=== PATIENT | male | born 1985 | race Caucasian/White ===

== ENCOUNTER 2017-02-09 15:51 | Emergency (ER) | payer BC ==
[~2017-02-09] VITALS: Ht 170.2 cm; Wt 81.5 kg
[2017-02-09 16:01] VITALS: TEMP 36.6; Ht 170.2 cm; Wt 81.5 kg
[2017-02-09] MEDS ORDERED: GLUCTAB18 PO (16:58)
[2017-02-09] MEDS ORDERED: CLR10 PO (16:58)
[2017-02-09] MEDS ORDERED: DOXY1TAB6 PO (16:58)
[2017-02-09 17:00] LABS: URINE APPEARANCE CLEAR (CLEAR); URINE BILIRUBIN NEG (NEG); URINE COLOR YELLOW; URINE NITRITE NEG (NEG); URINE PH 5.5 (4.5-7.5); URINE SPECIFIC GRAVITY 1.015 (1.000-1.030); UROBILINOGEN NEG (NEG); ZZUR CULT IF INDIC CLEAN CATCH NO
[2017-02-09 17:04] LABS: MANUAL MICROSCOPIC REQUIRED? NO; REVIEW REQ? NO
--- NOTE | 2017-02-09 18:18 | DIAGNOSTIC IMAGING REPORT ---
ULTRASOUND TESTES AND SCROTUM CLINICAL HISTORY: Right testicular pain. Hematuria. COMPARISON STUDY: No priors. TECHNIQUE: Real-time, grayscale, and color Doppler sonography of the testes and scrotum is performed. Images are reviewed in the transverse and longitudinal planes. FINDINGS: The testes are normal in size and homogeneous in echotexture. The right testis measures 4.9 x 1.9 x 3.2 cm and the left testis measures 5.0 x 2.3 x 2.7 cm. No intratesticular mass is seen. Testicular blood flow is normal and symmetric. Normal Doppler waveforms are identified in both testes. The epididymal heads are normal in appearance. The right epididymal head measures 1.6 cm in length and the left epididymal head measures 0.9 cm in length. The right epididymis appears hyperemic. A 4 mm epididymal head cyst is noted on the left. There is a small right-sided hydrocele. A left-sided varicocele measures up to 4 mm. IMPRESSION: 1. Unremarkable sonographic appearance of the testes. 2. The right epididymis appears mildly enlarged and heterogeneous, and there is right epididymal hyperemia noted on color imaging. The appearance is typical for epididymitis. Clinical correlation will be required. 3. There is a small right-sided hydrocele. 4. A small left-sided varicocele is noted. Electronically signed by: Lui Wood M.D. 02/09/2017 6:17 PM Dictated Date/Time: 02/09/2017 6:14 PM
[2017-02-09] MEDS ORDERED: TRAM-10 PO (18:45)
[2017-02-09] MEDS ORDERED: TRAMADOL HCL 50 MG HOME PACK PO ONE (18:45)
[2017-02-09] MEDS ORDERED: LEVOFLOXACIN 250 MG TAB PO ONE (18:45)
[2017-02-09] MEDS ORDERED: LEVO-366 PO (18:45)
[2017-02-09 18:46] VITALS: BP 130/78; PULSE 76; O2SAT 97
--- NOTE | 2017-02-09 23:14 | EMERGENCY ROOM VISIT NOTE ---
History First contact with patient: 16:11 Chief Complaint: TESTICULAR PAIN Stated Complaint: SWELLING IN GROIN,BLOOD IN URINE Nursing Triage Summary: Pt presents with c/o right testicular pain and hematuria that began a couple weeks ago, worse after cat jumped on him Fri. Seen at [facility] on and being tx for a UTI with doug. "Noticeable lump on/beside right testicle. Noticeable amount of blood in my urine since last night." Denies flank pain. Fever on Fri. Denies discharge from penis. Denies hx of kidney stones. History of Present Illness The patient is a 31 year old male who presents to the Emergency Room with complaints of right testicular pain, swelling and hematuria. The patient reports that he first noticed right testicular pain 2 weeks ago. Earlier this past week, he then started to notice worsening discomfort on Friday. On Friday , he reports that his cat jumped off of the back of his chair and into his lap. He did have some mild discomfort that went away. The patient then reported that on the following day he had burning with urination and difficulty initiating flow. He went to the [facility] urgent care center on Friday, and was initially treated for a possible UTI or epididymitis. He was administered Rocephin IM and provided a prescription for doxycycline. He was called on Friday and told that his urine culture was negative. They suggested that he come to the emergency department for any persistent or worsening pain. The patient reports that the blood is not dispersed through the urine, but seems more like clots. He denies any urethral drainage. He has been in a monogamous relationship for the past 4 years, and is not concerned for STI. He denies any other recent trauma. He denies any prior history of testicular pain or difficulty with urine. He rates his discomfort a 6 out of 10. The pain does not extend into the abdomen, back or flank, and the patient denies any history of kidney stones. Review of Systems 10 system review was performed and was negative except for pertinent positives and negatives as indicated in history of present illness Past Medical/Surgical History Medical Problems: (1) No significant past medical history Surgical Problems: (1) No history of previous surgery Family History Unremarkable Social History Smoking Status: Never Smoker Alcohol Use: occasionally Drug Use: none Marital Status: single Occupation Status: employed Current/Historical Medications Scheduled Doxycycline Hyclate (Doxycycline Hyclate), 100 MG PO BID Glucosamine-Chondroitin (Osteo Bi-Flex Regular Str), 2 TABS PO DAILY Levofloxacin (Levaquin), 500 MG PO DAILY Loratadine (Claritin), 10 MG PO DAILY Scheduled PRN Tramadol (Ultram), 1-2 TAB PO Q4H PRN for Pain Allergies Coded Allergies: Caffeine (Verified Allergy, Intermediate, Itchiness, 02/09/17) Physical Exam Vital Signs Date Time Temp Pulse Resp B/P (MAP) Pulse Ox O2 Delivery O2 Flow Rate FiO2 02/09/17 18:46 76 16 130/78 97 Room Air 02/09/17 17:40 93 18 144/74 99 Room Air 02/09/17 16:01 36.6 120 18 142/83 100 Room Air Physical Exam CONSTITUTIONAL: Healthy and well nourished. Alert and oriented X 3 with positive affect. Patient does not appear in any acute distress. HEENT: Normocephalic, atraumatic. Pupils equal, round and reactive. NECK: Full active range of motion without discomfort. RESPIRATORY: Clear to auscultation bilaterally with no wheezing, crackles, rhonchi or stridor. CARDIOVASCULAR: Regular rate and rhythm with no murmurs, rubs or gallops. GASTROINTESTINAL: Bowel sounds present in all quadrants. Abdomen is soft and nontender to palpation. Negative Ishpeming's point tenderness. No suprapubic tenderness to palpation. Negative CVA tenderness. GENITOURINARY: Circumcised male without any evidence of penile lesions or urethral drainage. The patient has a palpable tender lump of the inferior posterior aspect of the right testicle. No other upper posterior fullness, back or arms, palpable scrotal masses, scrotal edema or erythema. Testicles appear symmetric in size. MUSCULOSKELETAL: Full range of motion of all joints without discomfort. INTEGUMENTARY: No rash or other significant dermatologic conditions noted. HEMATOLOGIC: No ecchymosis or petechiae. NEUROLOGIC: No focal neurologic deficits noted. Medical Decision & Procedures ER Provider Diagnostic Interpretation: Testicular ultrasound shows the following: ULTRASOUND TESTES AND SCROTUM CLINICAL HISTORY: Right testicular pain. Hematuria. COMPARISON STUDY: No priors. TECHNIQUE: Real-time, grayscale, and color Doppler sonography of the testes and scrotum is performed. Images are reviewed in the transverse and longitudinal planes. FINDINGS: The testes are normal in size and homogeneous in echotexture. The right testis measures 4.9 x 1.9 x 3.2 cm and the left testis measures 5.0 x 2.3 x 2.7 cm. No intratesticular mass is seen. Testicular blood flow is normal and symmetric. Normal Doppler waveforms are identified in both testes. The epididymal heads are normal in appearance. The right epididymal head measures 1.6 cm in length and the left epididymal head measures 0.9 cm in length. The right epididymis appears hyperemic. A 4 mm epididymal head cyst is noted on the left. There is a small right-sided hydrocele. A left-sided varicocele measures up to 4 mm. IMPRESSION: 1. Unremarkable sonographic appearance of the testes. 2. The right epididymis appears mildly enlarged and heterogeneous, and there is right epididymal hyperemia noted on color imaging. The appearance is typical for epididymitis. Clinical correlation will be required. 3. There is a small right-sided hydrocele. 4. A small left-sided varicocele is noted. Laboratory Results Test 02/09/17 16:33 Urine Color YELLOW Urine Appearance CLEAR (CLEAR) Urine pH 5.5 (4.5-7.5) Urine Specific [place] 1.015 (1.000-1.030) Urine Protein NEG (NEG) Urine Glucose (UA) NEG (NEG) Urine Ketones TRACE (NEG) Urine Occult Blood NEG (NEG) Urine Nitrite NEG (NEG) Urine Bilirubin NEG (NEG) Urine Urobilinogen NEG (NEG) Urine Leukocyte Esterase NEG (NEG) Urinalysis was unremarkable with only trace ketones. No hematuria or signs of infection are noted. Medications Administered Medications (Trade) Dose Ordered Sig/Rachel Route Start Time Stop Time Status Last Admin Dose Admin Levofloxacin (Levaquin Tab) 500 mg NOW ONCE PO 02/09/17 18:45 02/09/17 18:46 DC 02/09/17 18:44 500 MG Tramadol HCl (Ultram Home Pack) 1 homepack UD ONCE PO 02/09/17 18:45 02/09/17 18:46 DC 02/09/17 18:45 1 HOMEPACK ED Course Patient history and physical exam were performed. Nurse's notes were reviewed. Vital signs were reviewed and normal. I also reviewed documentation that the patient brought with him from the [facility] urgent care center. Urine dip showed a moderate to large amount of blood and leukocytes with no nitrites. The appearance was yellow and cloudy. The patient was treated with Rocephin 250 mg IM with a urine collection STI test, and urine culture. He was treated with doxycycline 100 mg tablets twice a day 14 days. Physical exam today does show a tender palpable mass over the posterior inferior aspect of the right testicle. Clinical exam is otherwise unremarkable. I did suggest performing ultrasound studies, along with a urinalysis. The patient refused any analgesics. Urinalysis shows no evidence for infection or hematuria. Testicular ultrasound was suggestive of epididymitis. A small right-sided hydrocele and left-sided varicocele were noted. Because the patient is not responding to the doxycycline antibiotics, I did questioned further about the potential for enteric infection. A couple do admit to occasional history of anal sex. For this reason, the patient will be covered with Levaquin 500 mg daily 10 days. The patient was provided contact information for Dr. Ayala, urologist, for further reevaluation. The patient was encouraged to intermittently apply ice. Ibuprofen and Tylenol in alternating fashion as needed for baseline pain relief. The patient was provided a home pack and prescription for Ultram as needed for worse pain, with the patient reported that he likely would not take this medication. The patient voiced understanding of all discharge instructions, and rated his discomfort a 3 out of 10 at the conclusion of my exam. Medical Decision See previous section. Ultrasound is consistent with acute epididymitis. Because he has poor response to doxycycline, and history of anal sex, he will be covered for possible enteric infection. At this point, I do not feel that urgent urology consultation is warranted. Impression Primary Impression: Epididymitis, right Additional Impressions: Hydrocele, right Left varicocele Departure Information Prescriptions Tramadol (Ultram) 50 Mg Tab 1-2 TAB PO Q4H Y for Pain, #30 TAB For Initial Treatment Prov: Vicente Thornton PA 02/09/17 Levofloxacin (Levaquin) 500 Mg Tab 500 MG PO DAILY for 9 Days, #9 TAB Prov: Vicente Thornton PA 02/09/17 Referrals No Doctor, Assigned (PCP) Patient Instructions My [facility] Problem Qualifiers
== END 2017-02-09 19:08 | disposition home or self-care (01) ==
LOC: C.EDB 15:55 → C.EDC 19:08
DX: N45.1 Epididymitis (principal); N43.3 Hydrocele, unspecified; I86.1 Scrotal varices; Z79.899 Other long term (current) drug therapy; Z91.018 Allergy to other foods